=== PATIENT | female | born 1945 | race Caucasian/White ===

== ENCOUNTER 2017-11-27 07:43 | Day surgery (SDC) | payer MEDICARE ==
[~2017-11-27] VITALS: Ht 167.6 cm; Wt 62.4 kg
[~2017-11-27 07:43] MED LIST: AMLO1CAP13 PO; AZAT50TA PO; GEMF600T3 PO; HYDR-4060 PO; LOVA20TA3 PO; METO50TA18 PO; OMEP10SU2 PO; SERT50TA12 PO; SODIUM CHLORIDE 0.9% 1000ML 1,000 ML IV ONE; tizanidine PO
[2017-11-27 08:22] LABS: CREATININE 0.8 mg/dL (0.5-1.5); POTASSIUM 3.9 mmol/L (3.5-5.1)
[2017-11-27 08:35] VITALS: BP 100/57
[2017-11-27 09:50] VITALS: BP 104/58
[2017-11-27 10:05] VITALS: BP 94/61
== END 2017-11-27 10:27 | disposition home or self-care (01) ==
LOC: DAH 07:43
PROVIDERS: ATTEND Internal Medicine Gastroenterology
DX: K50.112 Crohn's disease of large intestine with intestinal obstruction (principal); K63.3 Ulcer of intestine; E11.9 Type 2 diabetes mellitus without complications; K21.9 Gastro-esophageal reflux disease without esophagitis; I10 Essential (primary) hypertension; E78.5 Hyperlipidemia, unspecified; Z98.890 Other specified postprocedural states; Z98.51 Tubal ligation status; Z88.8 Allergy status to other drugs, medicaments and biological substances; F17.200 Nicotine dependence, unspecified, uncomplicated
CPT/HCPCS: 36415; 45380; 80048; 82948 ×2; 88305; 88313; 93005; A4606; J7030

== ENCOUNTER → 2018-11-26 | Outpatient (CLI) | payer MEDICARE ==
[~2018-11-26] MED LIST changes: -GEMF600T3 PO; +GEMF600T5 PO; -SODIUM CHLORIDE 0.9% 1000ML 1,000 ML IV ONE
== END | disposition home or self-care (01) ==
LOC: RAH 11:26
PROVIDERS: ATTEND Family Medicine
DX: Z12.31 Encounter for screening mammogram for malignant neoplasm of breast (principal)
CPT/HCPCS: 77067

== ENCOUNTER → 2022-11-05 | Outpatient (CLI) | payer MEDICARE ==
[~2022-11-05] MED LIST changes: +AMLO-74 PO; -AMLO1CAP13 PO; -GEMF600T5 PO; +GEMF600T89 PO; +SERT-439 PO; -SERT50TA12 PO
== END | disposition home or self-care (01) ==
LOC: RAH 08:24
PROVIDERS: ATTEND Family Medicine
DX: Z12.31 Encounter for screening mammogram for malignant neoplasm of breast (principal)
CPT/HCPCS: 77067

== ENCOUNTER → 2025-01-05 | Outpatient (CLI) | payer MEDICARE ==
--- NOTE | 2025-01-05 14:26 | HMCIMG ---
MRI OF THE CERVICAL SPINE WITHOUT GADOLINIUM Clinical Information: Comparison: Technique: Sagittal T1 and T2 FSE, Sagittal STIR and Sagittal proton density images were completed through the cervical spine. Axial T1, T2 and proton density images were also acquired. FINDINGS: There is straightening and reversal of lordosis of the spine consistent with spasm. There are spondylitic changes. No fractures or dislocations are identified. Vertebral body height and disc height is preserved at all levels. The bone marrow signal is normal for age. The spinal canal contents are preserved. The paraspinal muscles and other tissues show no significant abnormalities. Evaluation of the cervical spine by level: C1-C2: There is no spinal canal stenosis. No disc protrusions or extrusions are seen. There is no neural foraminal stenosis, impingement, or narrowing. C2-C3: There is no spinal canal stenosis. No disc protrusions or extrusions are seen. There is no neural foraminal stenosis, impingement, or narrowing. C3-C4: There is no spinal canal stenosis. No disc protrusions or extrusions are seen. There is no neural foraminal stenosis, impingement, or narrowing. C4-C5: There is no spinal canal stenosis. No disc protrusions or extrusions are seen. There is no neural foraminal stenosis, impingement, or narrowing. C5-C6: There is a central zone disc protrusion causing spinal canal stenosis without cord compression. There is also bilateral neural foraminal narrowing and nerve root impingement. C6-C7: There is a central zone disc protrusion causing spinal canal stenosis without cord compression. There is also bilateral neural foraminal narrowing and nerve root impingement. C7-T1: There is no spinal canal stenosis. No disc protrusions or extrusions are seen. There is no neural foraminal stenosis, impingement, or narrowing. Impression: Multilevel disc protrusions causing impingement. Cervical spasm.
== END | disposition home or self-care (01) ==
LOC: RAH 12:39
PROVIDERS: ATTEND Internal Medicine
DX: M47.812 Spondylosis without myelopathy or radiculopathy, cervical region (principal); M46.92 Unspecified inflammatory spondylopathy, cervical region; M50.223 Other cervical disc displacement at C6-C7 level; M50.222 Other cervical disc displacement at C5-C6 level; M48.02 Spinal stenosis, cervical region
CPT/HCPCS: 72141